=== PATIENT | female | born 1990 | race Caucasian/White ===

== ENCOUNTER 2016-05-09 20:37 | Emergency (ER) | payer OTHER ==
[~2016-05-09] VITALS: Ht 160 cm; Wt 60.0 kg
[2016-05-09 20:52] VITALS: Ht 160 cm; Wt 60.0 kg
--- NOTE | 2016-05-09 22:22 | ERD ---
ER Documentation Chief Complaint Date/Time DATE: 05/09/16 TIME: 22:18 Chief Complaint Vaginal bleed x2 days 6wks HPI 25-year-old A1 presents to ED with chief complaint of vaginal bleeding. She states she is 6 weeks , and found that through at home urine test. She currently denies pelvic pain, abdominal pain, dysuria, fever, and trauma. She is not taking any medications for relief of her symptoms. States that initially the vaginal bleeding began last night as spotting, and now she is having increasingly more bleeding but has not gone through more than 1 pad today. ROS All systems reviewed and are negative except as per history of present illness. Allergies Allergies: Coded Allergies: No Known Allergies (Verified Allergy, Unknown, 10/05/13) PMhx/Soc Medical and Surgical Hx: pt denies Medical Hx, pt denies Surgical Hx Hx Alcohol Use: Yes (SOCIAL) Hx Substance Use: No Hx Tobacco Use: No Smoking Status: Never smoker Physical Exam Vitals Vital Signs Date Time Temp Pulse Resp B/P Pulse Ox O2 Delivery O2 Flow Rate FiO2 05/10/16 00:16 98.6 70 18 120/75 99 Room Air 05/09/16 20:52 99.3 87 20 125/80 99 Physical Exam GENERAL: Non-toxic. No apparent signs of distress. LUNGS: Clear to auscultation. No accessory muscle use. No wheezing, no crackles. No signs or symptoms of respiratory distress. HEART: Regular rate and rhythm. No murmurs, clicks, rubs or gallops. ABDOMEN: Soft and nondistended. No tenderness to palpation of the abdomen, pelvic area, or adnexal area. Bowel sounds positive. No rebound or guarding. No gross peritoneal signs. No Hunt or McBurney point tenderness. No gross masses. BACK: No midline tenderness, no costovertebral tenderness. NEURO: The patient moves all 4 extremities with 5/5 strength. Cranial nerves are grossly intact. Normal mental status for age. Good muscle tone. SKIN: There is no apparent rash, petechiae, erythema or swelling. Good skin turgor. Result Diagram: 05/09/160 Results 24 hrs Laboratory Tests Test 05/09/16 22:02 05/09/16 22:10 Urine Bilirubin NEGATIVE Urine Clarity CLEAR Urine Color LT. YELLOW Urine Glucose NEGATIVE% Urine Hemoglobin NEGATIVE Urine Ketones NEGATIVE Urine Leukocyte Esterase NEGATIVE Urine Nitrite NEGATIVE Urine Specific [place] >=1.030 Urine Total Protein NEGATIVE Urine Urobilinogen 0.2 E.U./dL Urine pH 5.5 Basophils # 0.110^3/ul Basophils % 0.5% Beta HCG, Quantitative 9537.6mIU/ml Eosinophils # 0.110^3/ul Eosinophils % 1.1% Hematocrit 41.0% Hemoglobin 14.1g/dl Lymphocytes # 2.710^3/ul Lymphocytes % 28.3% Mean Corpuscular Hemoglobin 30.0pg Mean Corpuscular Hemoglobin Concent 34.4g/dl Mean Corpuscular Volume 87.2fl Mean Platelet Volume 10.7fl Monocytes # 0.610^3/ul Monocytes % 6.7% Neutrophils # 5.910^3/ul Neutrophils % 63.2% Nucleated Red Blood Cells # 0.010^3/ul Nucleated Red Blood Cells % 0.0/100WBC Platelet Count 15825^3/UL Red Blood Count 4.7010^6/ul Red Cell Distribution Width 12.2% White Blood Count 9.410^3/ul Procedures/MDM Patient is 6 weeks , presents with vaginal bleeding. She denies pelvic pain. I ordered a workup to assess for severe blood loss, and rule out ectopic . Awaiting results prior to further management. Currently patient is hemodynamically stable with stable vital signs, she appears in no acute distress and does not wish to have any pain medication. CBC: No signs of leukocytosis or anemia Beta hCG quant: 9537.6, within normal limits for 6 week UA: No leukocyte esterase or nitrite, UTI and pyelonephritis unlikely Rh blood type: Positive, RhoGam shot not needed OB ultrasound: IMPRESSION: 1. Single. Right C of estimated gestational age of 5 weeks and 1 day. 2. No identified crown rump length, yolk sac or tone. 3. Recommend serial follow-up quantitative Beta HCG and ultrasound correlation. Call radiologist to confirm that there is a typo in the impression, first line placement. Intrauterine of estimated gestational age of 5 weeks and 1 day. I explained the workup results to the patient and instructed her to return to the ER or clinic for repeat beta hCG quant to compare to current value. I printed a copy of her lab results and ultrasound. At this time low suspicion for ectopic , UTI, pyelonephritis, severe anemia, and ovarian torsion. Patient is stable for discharge and outpatient management. Advised to follow- up in 48 hours. Departure Diagnosis: Primary Impression: Vaginal bleeding in patient at less than 20 weeks gestation Condition: Adela Castillo PA-C May 09, 2016 22:22
[2016-05-09 22:27] LABS: ADD SCAN DIFF NO
[2016-05-09 22:31] LABS: BASOPHIL # 0.1 10^3/ul (0.0-0.1); BASOPHILS % 0.5 % (0.0-2.0); EOSINOPHILS # 0.1 10^3/ul (0.0-0.5); EOSINOPHILS % 1.1 % (0.0-7.0); HEMOGLOBIN 14.1 g/dl (12.0-16.0); LYMPHOCYTES # 2.7 10^3/ul (0.8-2.9); LYMPHOCYTES % 28.3 % (15.0-51.0); MEAN CORPUSCULAR HGB CONC 34.4 g/dl (32.0-37.0); MEAN CORPUSCULAR VOLUME 87.2 fl (82.0-101.0); MEAN PLATELET VOLUME 10.7 fl (7.4-10.4); MONOCYTE # 0.6 10^3/ul (0.3-0.9); MONOCYTES % 6.7 % (0.0-11.0); NEUTROPHIL # 5.9 10^3/ul (1.6-7.5); NEUTROPHILS % 63.2 % (39.0-77.0); PLATELET COUNT 196 10^3/UL (140-415); RED CELL DISTRIBUTION WIDTH 12.2 % (11.5-14.5); WHITE BLOOD COUNT 9.4 10^3/ul (4.8-10.8)
[2016-05-09 22:32] LABS: ADD UMIC NO; URINE BILIRUBIN (Dip) NEGATIVE (NEGATIVE); URINE BLOOD (Dip) NEGATIVE (NEGATIVE); URINE COLOR LT. YELLOW (YELLOW); URINE GLUCOSE (Dip) NEGATIVE (NEGATIVE); URINE KETONES (Dip) NEGATIVE (NEGATIVE); URINE LEUKOCYTE ESTERASE (Dip) NEGATIVE (NEGATIVE); URINE NITRITE (Dip) NEGATIVE (NEGATIVE); URINE TOTAL PROTEIN (Dip) NEGATIVE (NEGATIVE); URINE UROBILINOGEN (Dip) 0.2 E.U./dL (0.1-1.0)
--- NOTE | 2016-05-09 23:28 | RADRPT ---
AMENDMENT: 05/09/2016 11:40:18 PM Scooby Reeder MD ADDENDUM: Correction of psychology teacher error: IMPRESSION: Single intra-uterine with estimated gestational age of 5 weeks and 1 day. RPTAT: UU PROCEDURE: US OB. CLINICAL INDICATION: Early with hemorrhage. TECHNIQUE: Transabdominal and transvaginal views of the pelvis are available for review. COMPARISON: No prior studies are available for comparison. FINDINGS: Gestational sac size:0.85 cm heart rate:Not identified secondary to early dates. Ultrasound estimated gestational age:5-week and 1-day. No identified crown rump length, hear t motion or yolk sac. Estimated date of delivery is 01/06/2017. Small left ovarian cyst measures about 21 mm. Right ovary measures 28 x 19 x 19 mm. Left ovary measures 38 x 27 x 27 mm. No ovarian or adnexal mass lesion is seen. There is no free fluid. IMPRESSION: 1. Single. Right C of estimated gestational age of 5 weeks and 1 day. 2. No identified crown rump length, yolk sac or tone. 3. Recommend serial follow-up quantitative Beta HCG and ultrasound correlation. Physician Marko Date Time Electronically viewed and signed by Physician Marko on 05/09/2016 23:40 RS/
[2016-05-10 00:16] VITALS: BP 120/75; PULSE 70; RESP 18; TEMP 98.6
== END 2016-05-10 00:17 | disposition home or self-care (01) ==
LOC: FTE 20:37
DX: O20.9 Hemorrhage in early pregnancy, unspecified (principal); Z3A.01 Less than 8 weeks gestation of pregnancy
CPT/HCPCS: 36415; 76801; 76817; 81003; 84702; 85025; 86900; 86901

== ENCOUNTER 2016-05-11 19:56 | Emergency (ER) | payer SELFPAY ==
[~2016-05-11] VITALS: Ht 167.6 cm; Wt 59.5 kg
[2016-05-11 20:20] VITALS: Ht 167.6 cm; Wt 59.5 kg
[2016-05-11 21:45] LABS: URINE BLOOD (Dip) POC Negative (NEGATIVE)
[2016-05-11 22:00] LABS: ADD SCAN DIFF NO
[2016-05-11 22:02] LABS: BASOPHIL # 0.1 10^3/ul (0.0-0.1); BASOPHILS % 0.6 % (0.0-2.0); EOSINOPHILS # 0.1 10^3/ul (0.0-0.5); EOSINOPHILS % 1.4 % (0.0-7.0); HEMATOCRIT 43.7 % (37.0-47.0); HEMOGLOBIN 15.3 g/dl (12.0-16.0); LYMPHOCYTES # 2.3 10^3/ul (0.8-2.9); LYMPHOCYTES % 27.3 % (15.0-51.0); MEAN CORPUSCULAR HEMOGLOBIN 30.3 pg (29.0-33.0); MEAN CORPUSCULAR VOLUME 86.5 fl (82.0-101.0); MEAN PLATELET VOLUME 10.6 fl (7.4-10.4); MONOCYTE # 0.5 10^3/ul (0.3-0.9); MONOCYTES % 5.6 % (0.0-11.0); NEUTROPHIL # 5.6 10^3/ul (1.6-7.5); PLATELET COUNT 214 10^3/UL (140-415); RED BLOOD COUNT 5.05 10^6/ul (4.20-5.40); RED CELL DISTRIBUTION WIDTH 12.1 % (11.5-14.5); WHITE BLOOD COUNT 8.6 10^3/ul (4.8-10.8)
--- NOTE | 2016-05-11 23:10 | RADRPT ---
PROCEDURE: US OB. US OB Transabd 1St Tri CLINICAL INDICATION: Vaginal Bleed () TECHNIQUE: Transabdominal and transvaginal views of the pelvis are available for review. COMPARISON: No prior studies are available for comparison. FINDINGS: The uterus demonstrates a gestational sac, with mean sac diameter measuring 1.1 cm. There is no fet al pole presently identified. A yolk sac is noted. There is no evidence of subchorionic bleed. [place]-rump length:Not identified heart rate:Not identified Ultrasound estimated gestational age:5 weeks and 5 days Estimated delivery date 01/06/2017. Estimated delivery date by last menstrual period 01/04/2017. No adnexal masses identified. There is a 2.2 cm left ovarian cyst. There is no free fluid. IMPRESSION: 1. 1.1 cm intrauterine gestational sac with yolk sac. No pole or heart tones is yet id entified. This may be due to early dates. Serial beta HCG follow-up is recommended. 2. Left ovarian cyst, 2.2 cm. RPTAT: HBST .Wallace Jones MD, Date Time Electronically viewed and signed by .Wallace Jones MD, on 05/11/2016 23:10 .T/
--- NOTE | 2016-05-12 03:11 | ERD ---
ER Documentation Chief Complaint Date/Time DATE: 05/12/16 TIME: 03:05 Chief Complaint PT here for follow up after VB 2 days ago. 5 weeks . HPI Patient is a 25-year-old female, , who presents to the emergency department with vaginal bleeding which started 2 days ago. Patient states states that she is now having vaginal spotting. She states that her bleeding is now much less. Patient denies any pad use. Patient states she does have some pelvic cramping. Patient denies any fevers, chills, chest pain, shortness of breath, nausea, vomiting, upper abdominal pain, loss of consciousness. Patient states her last menstrual period was on 04-03-16. She presents today for a repeat beta-hCG and abdominal ultrasound. ROS All systems reviewed and are negative except as per history of present illness. Allergies Allergies: Coded Allergies: No Known Allergies (Verified Allergy, Unknown, 10/05/13) PMhx/Soc Medical and Surgical Hx: pt denies Medical Hx Hx Alcohol Use: Yes (SOCIAL) Hx Substance Use: No Hx Tobacco Use: No Smoking Status: Never smoker Physical Exam Vitals Vital Signs Date Time Temp Pulse Resp B/P Pulse Ox O2 Delivery O2 Flow Rate FiO2 05/11/16 20:20 98.3 79 20 104/61 100 Physical Exam GENERAL: Well-developed, well-nourished female. Appears in no acute distress. HEAD: Normocephalic, atraumatic. EYES: Pupils are equally reactive bilaterally. EOMs grossly intact. No conjunctival erythema. ENT: Moist mucous membranes. No uvula deviation. No kissing tonsils. NECK: Supple. No meningismus. Normal range of motion of the neck. LUNG: Clear to auscultation bilaterally. No rhonchi, wheezing, rales or coarse breath sounds. HEART: Regular rate and rhythm. No murmurs, rubs or gallops. ABDOMEN: Soft, nontender, and nondistended. Positive bowel sounds in all four quadrants. No rebound tenderness, no guarding. (-) McBurney's point tenderness. No CVA tenderness. BACK: No midline tenderness. EXTREMITIES: Equal pulses bilaterally. No peripheral clubbing, cyanosis or edema. No unilateral leg swelling. NEUROLOGIC: Alert and oriented. Moving all four extremities without any difficulty. Normal speech. Steady gait. SKIN: Normal color. Warm and dry. No rashes or lesions. Result Diagram: 05/11/162149 Results 24 hrs Laboratory Tests Test 05/11/16 21:44 05/11/16 21:50 Bedside Urine Blood Negative Bedside Urine Glucose (UA) Negative Bedside Urine Ketones (LAB) Negative Bedside Urine Leukocyte Esterase (L Negative Bedside Urine Nitrite (LAB) Negative Bedside Urine Protein (LAB) Negative Bedside Urine pH (LAB) 5.5 Basophils # 0.110^3/ul Basophils % 0.6% Beta HCG, Quantitative 02286.0mIU/ml Eosinophils # 0.110^3/ul Eosinophils % 1.4% Hematocrit 43.7% Hemoglobin 15.3g/dl Lymphocytes # 2.310^3/ul Lymphocytes % 27.3% Mean Corpuscular Hemoglobin 30.3pg Mean Corpuscular Hemoglobin Concent 35.0g/dl Mean Corpuscular Volume 86.5fl Mean Platelet Volume 10.6fl Monocytes # 0.510^3/ul Monocytes % 5.6% Neutrophils # 5.610^3/ul Neutrophils % 65.0% Nucleated Red Blood Cells # 0.010^3/ul Nucleated Red Blood Cells % 0.0/100WBC Platelet Count 21091^3/UL Red Blood Count 5.0510^6/ul Red Cell Distribution Width 12.1% White Blood Count 8.610^3/ul Procedures/MDM ED COURSE: The patient was stable throughout ED course. I kept the patient and/or family informed of laboratory and diagnostic imaging results throughout the ED course. DIAGNOSTIC IMAGING: Read by radiologist. Patient: SYLVIE HORNE : 1990 Age: 25 Sex: F MR #: [id number] DOS: 05/11/162132 Ordering MD: ALTON SRIVASTAVA PA-C Location: [facility] Room/Bed: PROCEDURE: US OB. US OB Transabd 1St Tri CLINICAL INDICATION: Vaginal Bleed () TECHNIQUE: Transabdominal and transvaginal views of the pelvis are available for review. COMPARISON: No prior studies are available for comparison. FINDINGS: The uterus demonstrates a gestational sac, with mean sac diameter measuring 1.1 cm. There is no pole presently identified. A yolk sac is noted. There is no evidence of subchorionic bleed. [place]-rump length: Not identified heart rate: Not identified Ultrasound estimated gestational age: 5 weeks and 5 days Estimated delivery date 01/06/2017. Estimated delivery date by last menstrual period 01/04/2017. No adnexal masses identified. There is a 2.2 cm left ovarian cyst. There is no free fluid. IMPRESSION: 1. 1.1 cm intrauterine gestational sac with yolk sac. No pole or heart tones is yet identified. This may be due to early dates. Serial beta HCG follow-up is recommended. 2. Left ovarian cyst, 2.2 cm. RPTAT: HBST .Wallace Jones MD, Date Time Electronically viewed and signed by .Wallace Jones MD, MD on 05/11/2016 23:10 .T/ CC: ALTON SRIVASTAVA PA-C MEDICAL DECISION MAKING: This is a 25-year-old female, , presents to the emergency department for repeat beta-hCG and pelvic ultrasound. Vital signs were reviewed. Patient was afebrile. Patient was not hypoxic. Patient was hemodynamically stable. Patient was seen here on 05-09-2016 and found to have a beta-hCG of 9537. At that time, a single intrauterine gestational sac was noted at the gestational age of 5 weeks and 1 day. No identified crown-rump length, yolk sac or heart tone was noted. Today, [place] [address]. At previous visit patient was noted to be B+. There is no indication for RhoGam at this time. Pelvic ultrasound obtained today showed a 1.1 intrauterine gestational sac with a yolk sac. No pole or heart tones is yet identified. This may be due to early dates. Serial beta hCG follow-up is recommended. Left ovarian cyst, 2.2 cm. At this time, the patient 's presentation is most consistent with threatened vs IUP. I have a much lower clinical concern for ectopic , ruptured ectopic , molar , subchorionic hematoma, incomplete , complete , missed , uterine rupture, anembyronic , demise. DISCHARGE: At this time, patient is stable for discharge and outpatient management. I had a conversation at length with the patient about the concerns of vaginal bleeding during the 1st trimester of . Patient and/or family understands that her vaginal bleeding can be a normal finding or a sign of miscarriage. I have instructed the patient to follow-up with her OBGYN in 1-2 days for further monitoring including a repeat b-HCG level and pelvic US. I have instructed the patient to promptly return to the ER at any time for any new or worsening symptoms including increased pain, nausea, vomiting, continued bleeding, weakness, syncope or fever. The patient and/or family expressed understanding of and agreement with this plan. All questions were answered. Home care instructions were provided. Departure Diagnosis: Primary Impression: Vaginal bleeding in patient at less than 20 weeks ges... Condition: Stable Patient Instructions: Bleeding During Early Referrals: COMMUNITY CLINICS YOU HAVE RECEIVED A MEDICAL SCREENING EXAM AND THE RESULTS INDICATE THAT YOU DO NOT HAVE A CONDITION THAT REQUIRES URGENT TREATMENT IN THE EMERGENCY DEPARTMENT. FURTHER EVALUATION AND TREATMENT OF YOUR CONDITION CAN WAIT UNTIL YOU ARE SEEN IN YOUR DOCTORS OFFICE WITHIN THE NEXT 1-2 DAYS. IT IS YOUR RESPONSIBILITY TO MAKE AN APPOINTMENT FOR FOLOW-UP CARE. IF YOU HAVE A PRIMARY DOCTOR --you should call your primary doctor and schedule an appointment IF YOU DO NOT HAVE A PRIMARY DOCTOR YOU CAN CALL OUR PHYSICIAN REFERRAL HOTLINE AT IF YOU CAN NOT AFFORD TO SEE A PHYSICIAN YOU CAN CHOSE FROM THE FOLLOWING [facility] [address] [facility]. [facility] [address] [facility] [address] [facility]. [facility] [address] [facility]. [facility] [address] [facility]. [facility]. [address] [facility] YOU HAVE RECEIVED A MEDICAL SCREENING EXAM AND THE RESULTS INDICATE THAT YOU DO NOT HAVE A CONDITION THAT REQUIRES URGENT TREATMENT IN THE EMERGENCY DEPARTMENT. FURTHER EVALUATION AND TREATMENT OF YOUR CONDITION CAN WAIT UNTIL YOU ARE SEEN IN YOUR DOCTORS OFFICE WITHIN THE NEXT 1-2 DAYS. IT IS YOUR RESPONSIBILITY TO MAKE AN APPOINTMENT FOR FOLOW-UP CARE. IF YOU HAVE A PRIMARY DOCTOR --you should call your primary doctor and schedule and appointment IF YOU DO NOT HAVE A PRIMARY DOCTOR YOU CAN CALL OUR PHYSICIAN REFERRAL HOTLINE AT . IF YOU CAN NOT AFFORD TO SEE A PHYSICIAN YOU CAN CHOSE FROM THE FOLLOWING [facility]: [facility] [address] [place] [address] [facility] [address] [place] [address] [facility] [address] [place] [address] [employer] [place] [address] [facility] [address] [place] [address] OFFICE FAX , [facility] [address] [place] [address] [address] [address] [place] [address] [address] [facility] [address] [facility], [address], [facility] [address] [address] [address] [place] [address] [facility] [address] [place] [address] [phone] [facility] [address] - [address], [facility] [address] [address] [address] [facility]. [address], [facility] [address] [address] [address] [place], [place] [id number] Additional Instructions: Call your primary care doctor/OBGYN TOMORROW for an appointment during the next 1-2 days.See the doctor sooner or return here if your condition worsens before your appointment time. Repeat beta-hCG and ultrasound advised in 2 days. Patient may return here or see her [employer]. ALTON SRIVASTAVA PA-C May 12, 2016 03:11
== END 2016-05-11 23:35 | disposition home or self-care (01) ==
LOC: FTE 19:56
DX: O20.9 Hemorrhage in early pregnancy, unspecified (principal); Z3A.01 Less than 8 weeks gestation of pregnancy
CPT/HCPCS: 36415; 76801; 76817; 81003; 84702; 85025

== ENCOUNTER 2016-12-30 18:16 | Inpatient (IN) | payer OTHER ==
[~2016-12-30] VITALS: Ht 162.6 cm; Wt 74.0 kg
[2016-12-30] MEDS ORDERED: OXYTOCIN 30 UNITS/LR 500 ML IV ONE (18:20)
[2016-12-30] MEDS ORDERED: LIDOCAINE 1% (MPF) 30 ML INJ ONE (18:29)
[2016-12-30] MEDS ORDERED: LACTATED RINGER'S 1,000 ML IV PRN (18:30)
[2016-12-30] MEDS ORDERED: LACTATED RINGER'S 1,000 ML IV SCH (18:33)
--- NOTE | 2016-12-30 18:42 | HP ---
Date/Time of Note Date/Time of Note DATE: 12/30/16 TIME: 18:39 OB - History Hx of Present Free Text/Dictation Admitted in active labor at 38+ weeks Last Menstrual Period: Apr 02, 2016 Estimated Due Date: Jan 07, 2017 : 2 Para: 1 Care: Good Care Ultrasounds: Normal mid trimester US Obstetrical Complications: None Medical Complications: None Past Family/Social History * Past Medical, Surgical, Family and Obstetric Histories reviewed from chart. Blood Type: B+ Rubella: immune RPR/VDRL: Negative GBS Status: Negative HBsAG: Negative OB Admission Exam Physical Exam HEENT: WNL Heart: Rhythm Normal Lungs: Clear, Equal Abdomen: WNL Extremities: Normal Reflexes: Normal Cervical Dilatation: 8cm Effacement: 100% Station: -1 Membranes: Intact Heart Rate: 130's Accelerations: Accelerations Present Decelerations: No Decelerations Varibility: Marked Contractions on Admission: < 5 Minutes Apart Date/Time Contractions Began: 12/30/2016 9:00 in the morning Frequency of Contractions: Every 5 minutes Duration: Over 66 Intensity: Mild OB Assessment/Plan Reason for admission: active labor Other Assessment: Term gestation Other plan: Proceed with labor GWENDOLYN STANLEY MD Dec 30, 2016 18:41
--- NOTE | 2016-12-30 18:43 | LDN ---
Date/Time of Note Date/Time of Note DATE: 12/30/16 TIME: 18:42 Delivery Summary Normal spontaneous vaginal delivery of a viable over intact perineum Weeks of Gestation 38+ Placenta Delivered: Spontaneously, Intact & Complete Meconium: none Episiotomy: No Perineal laceration: 0 Laceration repair: Small vestibular laceration on right labia minora was reapproximated using 4-0 chromic Anesthesia type: Local Sponge & Needle done & correct: Yes All needle counts correct: Yes Any foreign bodies felt in the: No Problems: Delivery Information Sex Infant Sex: male Apgars 1 Minute: 9 5 Minute: 9 Suctioning Nose & mouth suctioned at [place]: Yes Delee suction performed: No Umbilical Cord Umbilical cord with: 3 Vessels Cord presentations: no nuchal cord Cord Blood was obtained: Yes Mother & Baby Disposition Disposition Mom & Baby to Maternity; Good: Yes (Mother and baby were recovered in good condition) Mom transferred to: Other (Maternity) Baby to NICU: No GWENDOLYN STANLEY MD Dec 30, 2016 18:43
[2016-12-30] MEDS ORDERED: LIDOCAINE 1% (MPF) 30 ML INJ INJ PRN (19:00)
[2016-12-30] MEDS ORDERED: OXYTOCIN 30 UNITS/LR 500 ML IV PRN (19:00)
[2016-12-30] MEDS ORDERED: CARBOPROST 250 MCG INJ IM PRN (19:00)
[2016-12-30] MEDS ORDERED: IBUPROFEN 600 MG TAB PO PRN (19:00)
[2016-12-30] MEDS ORDERED: MISOPROSTOL 200 MCG TAB PR PRN (19:00)
[2016-12-30] MEDS ORDERED: METHYLERGONOVINE 0.2 MG INJ IM PRN (19:00)
[2016-12-30 19:24] VITALS: Ht 162.6 cm; Wt 74.0 kg
[2016-12-30 19:26] VITALS: BP 124/80; PULSE 87; RESP 18
[2016-12-30] MEDS: OXYTOCIN 30 UNITS/LR 500 ML IV SCH (19:36)
[2016-12-30 19:43] LABS: BASOPHIL # 0.1 10^3/ul (0.0-0.1); BASOPHILS % 0.3 % (0.0-2.0); EOSINOPHILS % 0.2 % (0.0-7.0); HEMATOCRIT 39.2 % (37.0-47.0); HEMOGLOBIN 12.9 g/dl (12.0-16.0); LYMPHOCYTES # 1.7 10^3/ul (0.8-2.9); LYMPHOCYTES % 11.5 % (15.0-51.0); MEAN CORPUSCULAR HEMOGLOBIN 25.5 pg (29.0-33.0); MEAN CORPUSCULAR HGB CONC 32.9 g/dl (32.0-37.0); MEAN CORPUSCULAR VOLUME 77.6 fl (82.0-101.0); MONOCYTE # 0.9 10^3/ul (0.3-0.9); NEUTROPHIL # 11.8 10^3/ul (1.6-7.5); NEUTROPHILS % 81.5 % (39.0-77.0); PLATELET COUNT 176 10^3/UL (140-415); RED BLOOD COUNT 5.05 10^6/ul (4.20-5.40); RED CELL DISTRIBUTION WIDTH 14.3 % (11.5-14.5); WHITE BLOOD COUNT 14.4 10^3/ul (4.8-10.8)
[2016-12-30 19:56] LABS: INR 0.94; PROTIME 12.6 Sec (12.2-14.2)
[2016-12-30 19:57] LABS: PARTIAL THROMBOPLASTIN TIME 27.7 Sec (25.0-35.0)
[2016-12-30 21:20] VITALS: BP 116/73; PULSE 80; RESP 18
[2016-12-31] VITALS: BP 113/66; PULSE 93; RESP 18
[2016-12-31] MEDS ORDERED: LACTATED RINGER'S 1,000 ML IV* SCH (00:10)
[2016-12-31] MEDS ORDERED: HYDROCODONE/APAP (5/325) TAB PO PRN ×2 (00:30)
[2016-12-31] MEDS ORDERED: WITCH HAZEL/GLYCERIN PAD PR PRN (00:30)
[2016-12-31] MEDS ORDERED: METHYLERGONOVINE 0.2 MG INJ IM PRN (00:30)
[2016-12-31] MEDS ORDERED: ZOLPIDEM 5 MG TAB PO PRN (00:30)
[2016-12-31] MEDS ORDERED: MISOPROSTOL 200 MCG TAB PR PRN (00:30)
[2016-12-31] MEDS ORDERED: DIBUCAINE 1% 30 GM OINT PR PRN (00:30)
[2016-12-31] MEDS ORDERED: CARBOPROST 250 MCG INJ IM PRN (00:30)
[2016-12-31] MEDS ORDERED: OXYTOCIN 30 UNITS/LR 500 ML IV PRN (00:30)
[2016-12-31] MEDS ORDERED: BENZOCAINE 20% 56 ML SPRAY TOP PRN (00:30)
[2016-12-31] MEDS ORDERED: LANOLIN 7 GM TUBE TOP PRN (00:30)
[2016-12-31] MEDS: OXYTOCIN 30 UNITS/LR 500 ML IV SCH (01:24)
[2016-12-31 04:00] VITALS: BP 108/64; PULSE 89; RESP 18
[2016-12-31] MEDS: IBUPROFEN 600 MG TAB PO SCH ×3 (05:48→18:03)
[2016-12-31 08:00] VITALS: BP 104/58; PULSE 94; RESP 18
[2016-12-31] MEDS: MAGNESIUM HYDROXIDE 30ML CUP PO SCH ×2 (09:43→20:52)
[2016-12-31] MEDS: SENNA/DOCUSATE NA (8.6MG/50MG) TAB PO SCH ×2 (09:43→20:52)
[2016-12-31 10:33] LABS: BASOPHIL # 0.1 10^3/ul (0.0-0.1); BASOPHILS % 0.4 % (0.0-2.0); EOSINOPHILS # 0.1 10^3/ul (0.0-0.5); EOSINOPHILS % 0.6 % (0.0-7.0); HEMATOCRIT 37.1 % (37.0-47.0); HEMOGLOBIN 11.5 g/dl (12.0-16.0); LYMPHOCYTES # 1.6 10^3/ul (0.8-2.9); LYMPHOCYTES % 12.4 % (15.0-51.0); MEAN CORPUSCULAR HEMOGLOBIN 24.6 pg (29.0-33.0); MEAN CORPUSCULAR VOLUME 79.3 fl (82.0-101.0); MEAN PLATELET VOLUME 11.7 fl (7.4-10.4); MONOCYTE # 0.7 10^3/ul (0.3-0.9); MONOCYTES % 5.7 % (0.0-11.0); NEUTROPHIL # 10.1 10^3/ul (1.6-7.5); NEUTROPHILS % 80.5 % (39.0-77.0); PLATELET COUNT 156 10^3/UL (140-415); RED BLOOD COUNT 4.68 10^6/ul (4.20-5.40); RED CELL DISTRIBUTION WIDTH 14.8 % (11.5-14.5); WHITE BLOOD COUNT 12.6 10^3/ul (4.8-10.8)
[2016-12-31 12:00] VITALS: BP 100/52; RESP 16
[2016-12-31 16:00] VITALS: BP 100/59; PULSE 82; RESP 17
--- NOTE | 2016-12-31 18:00 | DS ---
Date/Time of Note Date/Time of Note Home today or next day DATE: 12/31/16 TIME: 18:00 Obstetrical Discharge Record Final Diagnosis Final Diagnosis: Term delivered Other Final Diagnosis Status post vaginal delivery Vaginal Delivery Obstetrical Delivery: Spontaneous, Laceration, Repaired Condition on Discharge Physical Assessment Last Vitals: See nurse's notes Voiding: Yes Bowel Movement: Yes Breast: Soft, non-tender, Filling Fundus: Firm Abdomen and Incision: Abdomen is soft bowel sounds present Fundus is firm at umbilicus Episiotomy: Not applicable Calf Tenderness: No Patient Condition: Good GWENDOLYN STANLEY MD Dec 31, 2016 18:00
--- NOTE | 2016-12-31 18:01 | PD.PPDC ---
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
[2016-12-31] MEDS ORDERED: IBUP-1542 PO (18:02)
[2016-12-31 20:00] VITALS: BP 118/64; PULSE 75; RESP 18
[2017-01-01] MEDS: IBUPROFEN 600 MG TAB PO SCH ×3 (00:06→11:59)
[2017-01-01 04:00] VITALS: BP 91/59; PULSE 73; RESP 18
[2017-01-01 08:00] VITALS: BP 104/69; PULSE 70; RESP 18
[2017-01-01] MEDS: MAGNESIUM HYDROXIDE 30ML CUP PO SCH (08:44)
[2017-01-01] MEDS: SENNA/DOCUSATE NA (8.6MG/50MG) TAB PO SCH (08:44)
[2017-01-01] MEDS ORDERED: DIPHTH/TET/ACEL PERTUSS (ADULT) 0.5 ML VIAL IM* ONE (09:00)
[2017-01-01] MEDS ORDERED: VARICELLA VACCINE LIVE/PF 1,350 UNIT/0.5 ML ML SC* ONE (09:00)
[2017-01-01] MEDS ORDERED: MEASLES,MUMPS,RUBELLA VACCINE INJ SC* ONE (09:00)
== END 2017-01-01 13:40 | disposition home or self-care (01) | DRG 775 ==
LOC: L-D 18:16 → PP1 21:19
PROVIDERS: ADMIT Obstetrics & Gynecology; ATTEND Obstetrics & Gynecology
PROC: 10E0XZZ Delivery of Products of Conception, External Approach (ICD-10-PCS; principal; 2016-12-30)
PROC: 0UQMXZZ Repair Vulva, External Approach (ICD-10-PCS; 2016-12-30)
PROC: 3E0P3VZ Introduction of Hormone into Female Reproductive, Percutaneous Approach (ICD-10-PCS; 2016-12-30)
DX: O70.0 First degree perineal laceration during delivery (principal); Z37.0 Single live birth; Z3A.38 38 weeks gestation of pregnancy
CPT/HCPCS: 85025; 85610; 85730; 86592; 86900; 86901; 90715; 90716; J2590; J7120

== ENCOUNTER 2018-07-05 00:05 | Emergency (ER) | payer OTHER ==
[~2018-07-05] VITALS: Wt 71.3 kg
[~2018-07-05 00:05] MED LIST: IBUP-1542 PO
--- NOTE | 2018-07-05 03:58 | ERD ---
ER Documentation Chief Complaint Chief Complaint R 2ND AND 3RD TOE WOUND, INFLAMMATION S/P TRIMMING NAILS FRI HPI 27-year-old female, presents to the emergency department, complaining of second and third right toe pain and erythema after a pedicure. The patient denies fever, no chills, no distal weakness, numbness or tingling. ROS All systems reviewed and are negative except as per history of present illness. Medications Home Meds Active Scripts Ibuprofen* (Ibuprofen*) 600 Mg Tablet, 600 MG PO Q6, #30 TAB 0 Refills Prov:GWENDOLYN STANLEY MD 12/31/16 Allergies Allergies: Coded Allergies: No Known Allergies (Verified Allergy, Unknown, 10/05/13) PMhx/Soc Medical and Surgical Hx: pt denies Surgical Hx Hx Alcohol Use: Yes (SOCIAL) Hx Substance Use: No Hx Tobacco Use: No Smoking Status: Never smoker FmHx Family History: No diabetes, No coronary disease Physical Exam Vitals Vital Signs Date Temp Pulse Resp B/P (MAP) Pulse Ox O2 O2 Flow FiO2 Time Delivery Rate 07/05/18 98.2 79 20 113/65 98 00:09 (81) Physical Exam Const: No acute distress Head: Atraumatic Eyes: Normal Conjunctiva ENT: Normal External Ears, Nose and Mouth. Neck: Full range of motion. No meningismus. Resp: Clear to auscultation bilaterally Cardio: Regular rate and rhythm, no murmurs Abd: Soft, non tender, non distended. Normal bowel sounds Skin: No petechiae or rashes Back: No midline or flank tenderness Ext: Right foot: Second and third toe with periungual erythema, edema, tenderness and yellowish discharge. Neur: Awake and alert Psych: Normal Mood and Affect Procedures/MDM Differential diagnosis include but not limited to: Insect bite, traumatic injury, herpetic patt, dermoid cyst. Low suspicion for acute systemic infection. Physical examination and clinical presentation consistent most likely with paronychia of second and third right toe. During the ED course the patient remained stable, no new complaints. The patient is stable to be treated outpatient and will be discharged home with a Rx for Bactrim, cephalexin and ibuprofen, some side effects of prescribed medications (headache, rash, nausea, vomiting, diarrhea, drowsiness, habituation, bleeding, hypertension, interactions with other medications) were reviewed. The patient was instructed to follow up with the primary care provider in the next 48h. If symptoms persist, worsen or new symptoms develop, then patient should return to the ED immediately. Instructions explained and given directly by me to the patient with acknowledgment and demonstrated understanding. Disclaimer: Inadvertent spelling and grammatical errors are likely due to EHR/dictation software use and do not reflect on the overall quality of patient care. Also, please note that the electronic time recorded on this note does not necessarily reflect the actual time of the patient encounter. Departure Diagnosis: Primary Impression: Paronychia of second toe of right foot Condition: Stable Additional Instructions: Thank you very much for allowing us to participate in your care. Your health and safety is our top priority at [facility]. The evaluation in the emergency department has been done to rule out an acute emergency, therefore, chronic conditions like malignancy or other diseases have not been evaluated; therefore, you need to follow up with a primary care provider in the next 48h. If symptoms persist, worsen or new symptoms develop, then patient should return to the ED immediately. Call your primary care doctor TOMORROW for an appointment during the next 2-4 days and bring all the information provided. Have prescriptions filled and follow precisely the directions on the label. If the symptoms get worse and your provider is unavailable, return to the Emergency Department immediately. RADHA DOE MD July 05, 2018 03:58
[2018-07-05] MEDS ORDERED: CEPH-443 PO (04:05)
[2018-07-05] MEDS ORDERED: IBUP-1561 PO (04:05)
[2018-07-05] MEDS ORDERED: SULF1TAB31 PO (04:05)
[2018-07-05] MEDS ORDERED: BACI28.34 TOP (04:05)
[2018-07-05 04:10] VITALS: BP 120/78; PULSE 88; RESP 19
== END 2018-07-05 04:10 | disposition home or self-care (01) ==
LOC: FTE 00:05
DX: L03.031 Cellulitis of right toe (principal)
CPT/HCPCS: 99283